=== PATIENT | female | born 1990 | race Caucasian/White ===

== ENCOUNTER 2019-05-20 17:12 | Emergency (ER) | payer OTHER ==
[~2019-05-20] VITALS: Ht 154.9 cm; Wt 49.0 kg
== END 2019-05-20 20:26 | disposition home or self-care (01) ==
LOC: ER 17:12
DX: R00.2 Palpitations (principal); B96.0 Mycoplasma pneumoniae [M. pneumoniae] as the cause of diseases classified elsewhere

== ENCOUNTER → 2022-06-20 | Outpatient (CLI) | payer OTHER | END | disposition home or self-care (01) | LOC: RX STUDY 10:22 | PROVIDERS: ATTEND Obstetrics & Gynecology Gynecology | DX: N70.11 Chronic salpingitis (principal) ==

== ENCOUNTER 2023-04-19 08:51 | Emergency (ER) | payer OTHER ==
[~2023-04-19] VITALS: Ht 162.6 cm; Wt 64.4 kg
[2023-04-19] MEDS ORDERED: TOPROL XL25 M1 PO (09:12)
[2023-04-19 10:28] LABS: HEMATOCRIT 31.2 % (36.0-45.00); HEMOGLOBIN 10.3 g/dL (12.0-15.00); MEAN CELL VOLUME 87.8 fL (80.00-100.00); MEAN CORPUSCULAR HEMOGLOBIN 29.1 pg (27.00-32.0); MEAN CORPUSCULAR HGB CONC 33.1 g/dl (32.0-36.0); PLATELET COUNT 295 K/uL (150-450); RED BLOOD COUNT 3.55 M/uL (4.00-6.00); RED CELL DISTRIBUTION WIDTH 15.2 % (11.5-14.5)
[2023-04-19 10:55] LABS: CALCIUM 9.3 mg/dL (8.5-10.1); CREATININE SERUM 0.68 mg/dL (0.55-1.02); GFR 101.59; POTASSIUM 3.51 mEq/L (3.5-5.1)
== END 2023-04-19 12:31 | disposition home or self-care (01) ==
LOC: ER
PROVIDERS: General Practice
DX: R00.2 Palpitations (principal); F41.9 Anxiety disorder, unspecified; Z20.822 Contact with and (suspected) exposure to COVID-19; Z91.041 Radiographic dye allergy status